=== PATIENT | female | born 1965 | race African-American/Black ===

== ENCOUNTER → 2018-02-04 | Day surgery (SDC) | payer OTHER ==
--- NOTE | 2018-02-04 12:26 | RAD REPORT ---
EXAM DESCRIPTION: US - Breast Core BX w/US Guidance - 02/04/2018 11:40 am CLINICAL HISTORY: ICD R 92.8 COMPARISON: January 26, 2018 FINDINGS: Risks, benefits and alternatives to the procedure were explained to the patient and inform ed consent obtained. Skin and subcutaneous tissues anesthetized with lidocaine. Under sonographic guidance, three 14 gauge vacuum assisted core biopsies of the lobulated mass within the outer left breast were performed. 2 c entimeter core specimens were obtained. Material was given to pathology. Subsequently a localizing clip was placed adjacent to the mass. The patient experienced no immediate complication IMPRESSION: Vacuum assisted core biopsies of the left breast mass
== END | disposition home or self-care (01) ==
LOC: DS 10:17
PROVIDERS: ATTEND Internal Medicine
PROC: 0HBU3ZX Excision of Left Breast, Percutaneous Approach, Diagnostic (ICD-10-PCS; principal; 2018-02-04)
DX: N63.0 Unspecified lump in unspecified breast (principal)
CPT/HCPCS: 19083; 88305

== ENCOUNTER → 2018-10-05 | Day surgery (SDC) | payer OTHER ==
--- NOTE | 2018-10-05 11:19 | RAD REPORT ---
EXAM DESCRIPTION: Ultrasound-guided vacuum assisted left breast core biopsy CLINICAL HISTORY: Breast mass N68.21 COMPARISON: Breast Core BX w/US Guidance dated 02/04/2018 FINDINGS: Informed consent was obtained and time-out was performed. The patient's left breast was prepped and draped in the usual sterile fashion. 1% lidocaine was used for local anesthetic purposes. Utilizing aseptic technique and ultrasound guidance, a 12 gauge vacuum assisted core biopsy device wa s used to obtain 2 core specimens through the mass of interest. A post biopsy clip was then placed. All collected material was sent for cytology. Patient tolerated procedure well. IMPRESSION: Successful ultrasound guided vacuum assisted left breast mass biopsy.
== END ==
LOC: DS 09:08
PROVIDERS: ATTEND Surgery
DX: N60.92 Unspecified benign mammary dysplasia of left breast (principal); N64.89 Other specified disorders of breast
CPT/HCPCS: 19083; 88305